=== PATIENT | female | born 1990 | race Caucasian/White ===

== ENCOUNTER 2017-06-20 17:25 | Emergency (ER) | payer MEDICAID ==
[~2017-06-20] VITALS: Ht 167.6 cm; Wt 112.9 kg
[2017-06-20] MEDS ORDERED: DAYTIME COLD-F118 ML PO (17:41)
[2017-06-20] MEDS ORDERED: LYRICA25 MG PO (17:41)
[2017-06-20] MEDS ORDERED: NORCO 5-325 TA1 EACH PO (18:10)
[2017-06-20] MEDS ORDERED: ZITHROMAX250 MG PO (18:10)
[2017-06-20] MEDS ORDERED: BACTRIM DS TAB1 EACH PO (18:10)
== END 2017-06-20 18:17 | disposition home or self-care (01) ==
LOC: ED 17:25
DX: H66.93 Otitis media, unspecified, bilateral (principal); Z88.0 Allergy status to penicillin; Z79.899 Other long term (current) drug therapy
CPT/HCPCS: 99283